=== PATIENT | female | born 1960 | race Caucasian/White ===

== ENCOUNTER 2023-11-11 18:35 | Emergency (ER) | payer OTHER ==
--- NOTE | 2023-11-11 18:47 | ERPHSYRPT ---
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 Pt reports she was walking [place] hill to [place] when she slipped and fell directly on her right knee. Pt denies hitting her head, denies LOC. Pt states she had surgery on the right knee on October 18, 2023 at [facility]. Pt received fentanyl in route to ED, is able to move the knee slightly. (SEVERO RÍOS) Allergies/Adverse Reactions: No Known Drug Allergies Allergy (Verified 11/11/23 18:51) Home Medications: Unobtainable 11/11/23 [History] - Review of Systems Constitutional: No Symptoms Respiratory: No Symptoms Cardiac: No Symptoms Abdominal/Gastrointestinal: No Symptoms Musculoskeletal: Fall, Joint Pain, Joint Swelling, No Joint Redness <SEVERO RÍOS - Last Filed: 11/11/23 18:41> - Physical Exam General Appearance: no apparent distress, alert Cardiovascular/Respiratory Exam: chest non-tender, normal breath sounds, regular rate/rhythm, no respiratory distress Hips Exam: bilateral: non-tender, normal inspection, no evidence of injury Legs Exam: bilateral leg: non-tender, normal inspection, normal range of motion, no evidence of injury Knees Exam: right knee: bone tenderness, joint effusion, pain, swelling, other (well healed vertical incision roughly 10cm overlying knee joint w/ evidence of recent removal of sutures/aroldo, minimal amount of bleeding from healing wound), left knee: non-tender, normal inspection, normal range of motion, no evidence of injury Ankle Exam: bilateral ankle: non-tender, normal inspection, normal range of motion, no evidence of injury Foot Exam: bilateral foot: non-tender, normal inspection, normal range of motion, no evidence of injury Neuro/Tendon Exam: normal sensation, responds to pain, no evidence tendon injury Mental Status Exam: alert, oriented x 3, cooperative SpO2 Interpretation: normal SpO2: 94 O2 Delivery: Room Air <SEVERO RÍOS - Last Filed: 11/11/23 18:41> - Nursing Vital Signs Nursing Vital Signs: Initial Vital Signs Temperature 97.5 F 11/11/23 18:38 Pulse Rate 71 11/11/23 18:38 Respiratory Rate 14 11/11/23 18:38 Blood Pressure 97/51 11/11/23 18:38 O2 Sat by Pulse Oximetry 93 L 11/11/23 18:38 Pain Scale Pain Intensity 5 - Course Nursing assessment & vital signs reviewed: Yes - CT Exams Right Lower Extremity CT Interpretation: Tele-radiologist Report, Fracture (comminuted, displaced femur fracture), Other (No vessel occlusion, extravasation) <BOB DAVIS - Last Filed: 11/13/23 01:33> Ordered Tests: Medication Summary Discontinued Medications Generic Name Dose Route Start Last Admin Trade Name Freq PRN Reason Stop Dose Admin Fentanyl Citrate 100 mcg 11/11/23 23:19 11/11/23 23:29 Fentanyl Citrate 100 Mcg/2 Ml* Vial IV 11/11/23 23:20 100 mcg STAT ONE Administration Fentanyl Citrate Confirm 11/11/23 23:22 Fentanyl Citrate 100 Mcg/2 Ml* Vial Administered 11/11/23 23:23 Dose 100 mcg .ROUTE .STK-MED ONE Sodium Chloride 1,000 mls @ 999 mls/hr 11/11/23 21:47 11/11/23 23:40 Sodium Chloride 0.9% 1000 Ml IV 11/11/23 22:47 Infused .Q1H1M STA Infusion Vancomycin HCl 2 gm in 400 mls @ 133.333 mls/hr 11/11/23 21:47 11/12/23 02:20 Vancomycin 2 Gram/400 Ml Bag IV 11/12/23 00:46 Infused STAT ONE Infusion Piperacillin Sod/Tazobactam 100 mls @ 200 mls/hr 11/11/23 21:47 11/11/23 22:18 Sod 3.375 gm/ Sodium Chloride IV 11/11/23 22:16 200 mls/hr STAT ONE Administration Sodium Chloride Confirm 11/11/23 22:10 Sodium Chloride 0.9% 1000 Ml Administered 11/11/23 22:11 Dose 1,000 mls @ ud .ROUTE .STK-MED ONE Sodium Chloride Confirm 11/11/23 22:11 Sodium Chloride 100ml Mini-Bag Plus Administered 11/11/23 22:12 Dose 100 mls @ ud IV .STK-MED ONE Sodium Chloride 1,000 mls @ 999 mls/hr 11/11/23 23:08 11/12/23 01:00 Sodium Chloride 0.9% 1000 Ml IV 11/12/23 00:08 Infused .Q1H1M STA Infusion Vancomycin HCl Confirm 11/11/23 23:08 Vancomycin 2 Gram/400 Ml Bag Administered 11/11/23 23:09 Dose 2 gm in 400 mls @ IV .STK-MED ONE Sodium Chloride Confirm 11/11/23 23:14 Sodium Chloride 0.9% 1000 Ml Administered 11/11/23 23:15 Dose 1,000 mls @ ud .ROUTE .STK-MED ONE Morphine Sulfate 2 mg 11/11/23 21:46 11/11/23 22:16 Morphine Sulfate 2 Mg/Ml Inj IV 11/11/23 21:47 2 mg STAT ONE Administration Morphine Sulfate Confirm 11/11/23 22:10 Morphine Sulfate 2 Mg/Ml Inj Administered 11/11/23 22:11 Dose 2 mg .ROUTE .STK-MED ONE Morphine Sulfate 4 mg 11/12/23 00:19 11/12/23 00:25 Morphine Sulfate 4 Mg/Ml Injection IV 11/12/23 00:20 4 mg STAT ONE Administration Morphine Sulfate Confirm 11/12/23 00:25 Morphine Sulfate 4 Mg/Ml Injection Administered 11/12/23 00:26 Dose 4 mg .ROUTE .STK-MED ONE Naloxone HCl Confirm 11/11/23 23:22 Naloxone Hcl 0.4 Mg/Ml Ml Administered 11/11/23 23:23 Dose 0.4 mg .ROUTE .STK-MED ONE Piperacillin Sod/Tazobactam Sod Confirm 11/11/23 22:10 Piperacillin/Tazobactam Sodium 3.375 Gm Vial Administered 11/11/23 22:11 Dose 3.375 gm IV .STK-MED ONE Lab/Rad Data: Laboratory Result Diagrams 11/11/23 20:00 11/11/23 20:00 Laboratory Results 11/11/23 11/11/23 11/11/23 Range/Units 22:10 20:00 20:00 WBC 8.4 (3.98-10.04) x10^3/uL RBC 3.78 L (3.93-5.22) x10^6/uL Hgb 11.6 (11.2-15.7) g/dL Hct 36.3 (34.1-44.9) % MCV 96.0 H (79.4-94.8) fL MCH 30.7 (25.6-32.2) pg MCHC 32.0 L (32.2-35.5) g/dL RDW 13.1 (11.7-14.4) % Plt Count 469 H (182-369) x10^3/uL MPV 10.8 (9.4-12.3) fL Gran % 51.9 (34.0-71.1) % Immature Gran % (Auto) 0.2 (0.001-0.429) % Nucleat RBC Rel Count 0.0 (0.00-0.2) % Eos # (Auto) 0.46 H (0.04-0.36) x10^3/uL Immature Gran # (Auto) 0.02 (0.001-0.031) x10^3u/L Absolute Lymphs (auto) 2.55 (1.18-3.74) x10^3/uL Absolute Monos (auto) 0.96 H (0.24-0.86) x10^3/uL Absolute Nucleated RBC 0.00 (0.00-0.012) x10^3u/L Lymphocytes % 30.3 (19.3-51.7) % Monocytes % 11.4 (4.7-12.5) % Eosinophils % 5.5 (0.7-5.8) % Basophils % 0.7 (0.1-1.2) % Absolute Granulocytes 4.36 (1.56-6.13) x10^3/uL Basophils # 0.06 (0.01-0.08) x10^3/uL Sodium 136 (135-145) mmol/L Potassium 4.2 (3.5-5.1) mmol/L Chloride 103 (98-107) mmol/L Carbon Dioxide 23 (22-30) mmol/L Anion Gap 14.5 (5-15) MEQ/L BUN 17 (7-17) mg/dL Creatinine 0.83 (0.52-1.04) mg/dL Estimated GFR 78.7 ML/MIN Glucose 135 H (74-106) mg/dL Calcium 9.7 (8.4-10.2) mg/dL Total Bilirubin 0.30 (0.2-1.3) mg/dL AST 29 (14-36) U/L ALT 18 (0-35) U/L Alkaline Phosphatase 128 H (38-126) U/L Serum Total Protein 7.3 (6.3-8.2) g/dL Albumin 4.2 (3.5-5.0) g/dL ABO Group O Rh Factor NEGATIVE Antibody Screen NEGATIVE (NEGATIVE) - Progress Progress: improved Discussed with Dr.: Other (irene jernigan bader) Counseled pt/family regarding: lab results, diagnosis, need for follow-up, rad results <BOB DAVIS - Last Filed: 11/13/23 01:33> - Progress Progress Note: Patient found to have a comminuted, displaced distal femur fracture just above recent total knee prosthesis. She has an area just medial to her incision that is bleeding that wasn't present prior to the fall. I will classify this as an open fracture at this time. Will start Vanc/Zosyn for abx coverage. CTA ordered to evaluate vessels, exam came back clean. She was placed in a knee immobilizer, but due to her fracture this was difficult to achieve full extension. After placed DP and TP pulses were 2+. Pain controlled with as needed morphine which has controlled her pain better than Fentanyl. She was given 2L NaCl fluid bolus to help increase her BP. Patient was accepted for transfer to [facility] by Dr. Tamayo and Dr. Jean Baptiste at [phone] and [phone]. (BOB DAVIS) Medical Desision Making - Discussion of managment Care discussed with:: specialist Reviewed:: Need for additional workup Agreed on:: Treatment plan Will see patient: in hospital - Diagnostic Testing Diagnostic test were ordered, analyzed, and reviewed by me: Yes Radiological Interpretation: Interpreted by me, Reviewed by me, Teleradiologist Report - Risk of complications The pt has a mod risk of morbidity or mortality based on: Need for prescription drug management The pt has a high risk of morbidity or mortality based on: Decision regarding hospitilization or escalation of hosp level of care <BOB DAVIS - Last Filed: 11/13/23 01:33> <SEVERO RÍOS - Last Filed: 11/11/23 18:41> - Departure Departure Disposition: Transfer ([facility]) Critical Care Time: No <BOB DAVIS - Last Filed: 11/13/23 01:33> - Departure Clinical Impression: Displaced comminuted fracture of shaft of femur, Total knee replacement status, Open fracture Condition: Stable Referrals: DOCTOR,NO FAMILY [Primary Care Provider] - Follow up/PCP as directed Instructions: Knee Pain (DC)
[2023-11-11 18:51] VITALS: TEMP 97.5
--- NOTE | 2023-11-11 21:32 | XRAY ---
CLINICAL HISTORY: fall on right knee COMPARISON: None. TECHNIQUE: Thin axial CT images of the right thigh and knee were obtained along with coronal and sagittal reconstructions. One of the following dose reduction techniques was utilized for this exam.Automated exposure control, adjustment of the mA and/or kV according to patient size, and use of iterative reconstruction. FINDINGS: Evidence of right knee arthroplasty. Severely comminuted and displaced fracture of the distal femoral metaphysis is seen. Surrounding soft tissue swelling and hematoma seen. No dislocation. No focal bony lesions. Normal bone density. IMPRESSION: 1. Evidence of right knee arthroplasty. 2. Severely comminuted and displaced fracture of the distal femoral metaphysis is seen just above the prosthesis. 3. Surrounding soft tissue swelling and hematoma seen. [facility] ER was called at [phone] at 08:20 PM OPERATING SYSTEMS SPECIALIST, 11/11/2023, and NurseViviane was informed regarding the presence of Significant Medical Findings in this report. Electronically Signed by: Loida Dunlap MD. (11/11/2023 21:28:28 EDT)
[2023-11-11 21:57] LABS: Absolute Neutrophil Ct (ANC) 4.36 x10^3/uL (1.56-6.13); BASOPHIL % 0.7 % (0.1-1.2); Basophil (Absolute #) 0.06 x10^3/uL (0.01-0.08); Eosinophil % 5.5 % (0.7-5.8); Eosinophil (Absolute #) 0.46 x10^3/uL (0.04-0.36); Hematocrit 36.3 % (34.1-44.9); Hemoglobin 11.6 g/dL (11.2-15.7); IMMATURE GRAN # 0.02 x10^3u/L (0.001-0.031); IMMATURE GRAN % 0.2 % (0.001-0.429); Lymphocyte (Absolute #) 2.55 x10^3/uL (1.18-3.74); Lymphocytes % 30.3 % (19.3-51.7); Mean Corpuscular Hemoglobin 30.7 pg (25.6-32.2); Mean Platelet Volume 10.8 fL (9.4-12.3); Monocyte (Absolute #) 0.96 x10^3/uL (0.24-0.86); Monocytes % 11.4 % (4.7-12.5); Neutrophil % 51.9 % (34.0-71.1); Platelet Count 469 x10^3/uL (182-369); Red Blood Count 3.78 x10^6/uL (3.93-5.22); Red Cell Distribution Width 13.1 % (11.7-14.4); White Blood Count 8.4 x10^3/uL (3.98-10.04)
[2023-11-11 22:03] LABS: ALBUMIN 4.2 g/dL (3.5-5.0); ANION GAP 14.5 MEQ/L (5-15); BILIRUBIN,TOTAL 0.3 mg/dL (0.2-1.3); Calcium 9.7 mg/dL (8.4-10.2); Creatinine 1 0.83 mg/dL (0.52-1.04); EST GLOMERULAR FILTRATION RATE 78.7 ML/MIN; Potassium 4.2 mmol/L (3.5-5.1); Total Protein 7.3 g/dL (6.3-8.2)
[2023-11-11] MEDS ORDERED: Sodium Chloride 0.9% 1000 ML 1,000 ML ONE ×2 (22:10→23:14)
[2023-11-11] MEDS ORDERED: PIPERACILLIN/TAZOBACTAM IV ONE (22:10)
[2023-11-11] MEDS ORDERED: MORPHINE SULFATE 2 MG INJ ONE (22:10)
[2023-11-11] MEDS ORDERED: Sodium Chloride 100ML MINI-BAG PLUS 100 ML IV ONE (22:11)
[2023-11-11] MEDS: Sodium Chloride 0.9% 1000 ML 1,000 ML IV STA ×2 (22:13→23:43)
[2023-11-11] MEDS: MORPHINE SULFATE 2 MG INJ IV ONE (22:16)
[2023-11-11] MEDS: PIPERACILLIN/TAZOBACTAM 3.375 GM in Sodium Chloride 100ML MINI-BAG PLUS 100 ML IV ONE (22:18)
[2023-11-11 23:07] LABS: ABO TYPING O; Antibody Screen NEGATIVE (NEGATIVE); RH TYPING NEGATIVE
[2023-11-11] MEDS ORDERED: VANCOMYCIN 2 GRAM/400 ML BAG 2 GM/400 ML PIGGYBACK IV ONE (23:08)
[2023-11-11] MEDS: VANCOMYCIN 2 GRAM/400 ML BAG 2 GM/400 ML PIGGYBACK IV ONE (23:16)
[2023-11-11] MEDS ORDERED: Narcan 0.4 MG/ML ONE (23:22)
[2023-11-11] MEDS ORDERED: SUBLIMAZE 100 MCG/2 ML ONE (23:22)
[2023-11-11] MEDS: SUBLIMAZE 100 MCG/2 ML IV ONE (23:29)
[2023-11-12] MEDS ORDERED: MORPHINE SULFATE 4 MG INJ ONE (00:25)
[2023-11-12] MEDS: MORPHINE SULFATE 4 MG INJ IV ONE (00:25)
--- NOTE | 2023-11-12 00:58 | XRAY ---
CLINICAL HISTORY: displaced femur fracture COMPARISON: 11/11/2023. TECHNIQUE: Contrast-enhanced thin slice Axial CT angiography of the lower extremity was performed with intravenous contrast with multiple reformats. One of the following dose reduction techniques were utilized for this exam: Automated exposure control, adjustment of the mA and/or kV according to patient size, use of iterative reconstruction. One of these 3D techniques was utilized: Maximum Intensity Pixel (MIP), 3D Reconstructed Images, Volume Rendered Images, Surface Shaded Rendering. FINDINGS: Redemonstration of the right total knee replacement exerting metallic artifact obscuring the popliteal region. Redemonstration of the severely comminuted and displaced fracture of the distal femoral metaphysis as well as the surrounding soft tissue swelling/hematoma. Aortic bifurcation, common, external and internal iliac arteries are normal in course, calibre and opacification showing mild intimal irregularities and calcified atheromatous plaques. RIGHT LOWER LIMB: Dorsal kinking of the lower third of the superficial femoral artery opposite the distal femoral shaft and the comminuted, displaced fracture with no underlying stenosis or occlusion. The popliteal artery is partially masked by the metallic artifact casted by the knee prosthesis, yet no definite underlying stenosis or occlusion. The common femoral and profunda femoris arteries are normal in course, calibre and opacification with no hemodynamically significant stenosis seen. The tibioperoneal arteries are normal in course, calibre and opacification with no hemodynamically significant stenosis. Anterior tibial, posterior tibial and peroneal arteries are normal in the course, calibre and opacification down to the lower leg. The Dorsalis pedis artery is non-visualized likely due to the suboptimal timining of the examination Good distal runoff. LEFT LOWER LIMB: Common femoral, superficial femoral and profunda femoris arteries are normal in course, calibre and opacification with no hemodynamically significant stenosis seen. Popliteal artery and tibioperoneal arteries are normal in course, calibre and opacification with no hemodynamically significant stenosis. Anterior tibial , posterior tibial and peroneal arteries are normal in course, calibre and opacification. The Dorsalis pedis artery is non-visualized likely due to the suboptimal timing of the examination. Good distal runoff. IMPRESSION: 1. Right Dorsal kinking of the lower third of the superficial femoral artery opposite the distal femoral shaft and the comminuted, displaced fracture with no underlying stenosis or occlusion. 2. The right popliteal artery is partially masked by the metallic artifact casted by the knee prosthesis, yet no definite underlying stenosis or occlusion, for better duplex evaluation. Electronically Signed by: Loida Dunlap MD. (11/12/2023 00:53:54 EDT)
[2023-11-12 04:06] VITALS: BP 109/76; PULSE 64; RESP 17; O2SAT 98
== END 2023-11-12 04:00 | disposition short-term general hospital (02) ==
LOC: ED 18:35
DX: S72.351B Displaced comminuted fracture of shaft of right femur, initial encounter for open fracture type I or II (principal); M97.11XA Periprosthetic fracture around internal prosthetic right knee joint, initial encounter; W10.2XXA Fall (on)(from) incline, initial encounter; Y93.01 Activity, walking, marching and hiking; Y92.838 Other recreation area as the place of occurrence of the external cause
CPT/HCPCS: 36000; 36415; 73700; 73706; 80053; 85025; 86850; 86900; 86901; 96365; 96367; 96374; 96375; 96376; 99285; J2270; J2310; J3010; L1830; J3370